=== PATIENT | male | born 1960 | race Caucasian/White ===

== ENCOUNTER 2025-02-10 22:05 | Emergency (ER) | payer OTHER, SELFPAY ==
[2025-02-10] VITALS (10 sets, daily range): BP systolic 106–141; BP diastolic 55–94; PULSE 66–86; RESP 12–20; TEMP 35.8–36.1; O2SAT 90–97; BMI 37.3; BMI 35.3
--- OUTSIDE RECORDS SUMMARY | 2025-02-10 22:07 | XMS_ITS | Clinical Summary ---
Author Organization [employer] [facility] & [facility] Address [address] [place] [address] Care Team Providers [employer] Name Role Phone Antonio Neri MD Primary Care Provider Allergies Active Allergy Reactions Criticality Noted Date Comments Venom-Honey Bee Anaphylaxis High 03/14/2017 Shellfish Containing Products Other - Describe In Comment Field 08/13/2019 Itchy face Sulfa (Sulfonamide Antibiotics) *Unknown - Pt Doesn't Remember Medications budesonide-formote roL (SYMBICORT) 160-4.5 mcg/actuation (160-4.5 mcg each actuation) inhalerIndications :Mild intermittent asthma with exacerbation (HC) Inhale 2 puffs twice daily and 1-2 puffs every 4 hours as needed for asthma exacerbations. Max 12 puffs per day. 1 Each 10/30/19 25 Active losartan-hydrochlo rothiazide, 50-12.5 mg, (HYZAAR) 50-12.5 mg tabletIndications: Benign essential HTN Take 1 Tablet by mouth once daily. 90 Tablet 3 10/30/19 25 Active EPINEPHrine (EPIPEN) 0.3 mg/0.3 mL auto-injectorIndic ations:Allergic to bees Inject 0.3 mg intramuscular each time if needed for Allergic Reaction. 4 Each 3 10/30/19 25 Active omeprazole 20 mg tabletIndications: Chronic GERD Take 1 Tablet (20 mg) by mouth once daily before a meal. 30 Tablet 1 02/05/20 25 Active aspirin chewable 81 mg chewable tabletIndications: Chest pain, unspecified type Chew 1 Tablet (81 mg) by mouth once daily with a meal. 02/05/20 25 Active metoprolol succinate (Toprol XL) 25 mg Sustained-Release tabletIndications: Chest pain, unspecified type Take 1 Tablet (25 mg) by mouth once daily. 30 Tablet 1 02/05/20 25 Active rosuvastatin 10 mg tabletIndications: Hyperlipidemia, unspecified hyperlipidemia type Take 1 Tablet (10 mg) by mouth at bedtime. 90 Tablet 3 02/05/20 25 Active nitroglycerin 0.4 mg sublingual tabletIndications: Chest pain, unspecified type Place 1 Tablet (0.4 mg) under the tongue every 5 minutes if needed for Chest Pain. Up to 3 tablets in 15 minutes. 25 Tablet 02/05/20 25 Active Hospital, Clinic, or Other Facility Administered Medication Ordered Dose Route Frequency Start Date End Date Status sodium chloride syringe 10 mL 10 mL IV ONE TIME 02/05/2025 02/05/2025 Ended sodium chloride syringe 10 mL 10 mL IV ONE TIME 02/05/2025 02/05/2025 Ended Active Problems Problem Noted Date Diagnosed Date Type 2 diabetes mellitus wit hout complication, without long-term current use of insulin 10/30/2024 Class 2 severe obesity with serious comorbidity and body mass index (BMI) of 35.0 to 35.9 in adult 10/30/2024 Overview (02/01/2025): BMI: 35.89 (10/30/24) Comorbidities: HTN, type 2 diabetes Benign essential HTN 10/28/2023 Hand arthritis 10/28/2023 Adenomatous colon polyp 08/05/2019 Overview (08/05/2019): Colonoscopy 07/2019 multiple polyps,long colon, cecum reached with patient prone. repeat in 3 years with longer colonoscope and anesthesia assistance at tertiary center Mild intermittent asthma without complication Bee sting 03/14/2017 Resolved Problems Problem Noted Date Diagnosed Date Resolved Date Prediabetes 10/28/2023 10/30/2024 Obesity, morbid 09/26/2023 10/28/2023 Elevated BP without diagnosis of hypertension 08/01/20 20 10/28/2023 Overweight 03/14/2017 10/28/2023 Encounters Date Type Department Care Team Description 02/08/2025 Telephone [facility] [address] [place] [address] Antonio Neri MD Follow Up 02/08/[address] [facility] [address] [place], [place] [id number] Bud Watt MD 02/05/2025 3:00 PM CDT Ancillary Procedure [facility] [address] [place] [address] 02/05/2025 Telephone [facility] [address] [place] [address] Antonio Neri MD Results 02/04/2025 4:35 PM CDT Office Visit [facility] [address] [place] [address] Antonio Neri MD Chest Pain (Across chest, started a couple months ago, when doing exertional activities, left arm gets numb ) 02/04/2025 Travel from Last 3 Months Immunizations Immunization Administration Dates Next Due Td (Age >=7 Years) 07/31/1996 Tdap 06/21/2015 Family History Medical History Relation Name Comments Heart attack Father Stroke Father Heart attack Paternal Grandfather fatal M I Anesthesia Problem No Family History Relation Name Status Comments Father Paternal Grandfather Social History Tobacco Use Types Packs/Day Years Used Date Smoking Tobacco: Former Smokeless Tobacco: Former Chew Quit: 10/31/2017 Tobacco Cessation:Counseling Given: No Alcohol Use Standard Drinks/Week Comments No 0 (1 standard drink = 0.6 oz pur e alcohol) PHQ-2 Answer Date Recorded PHQ-2 TOTAL SCORE 0 10/28/2023 Social Connections Answer Date Recorded Do you often feel lonely or isolated from those around you? 0 10/28/2023 Financial Resource Strain Answer Date R ecorded Difficulty of Paying Living Expenses 3 10/28/2023 Difficulty of Paying Living Expenses Not on file 10/28/2023 Food Insecurity Answer Date Recorded Do you worry your food will run out before you are able to buy more? 1 10/28/2023 Transportation Needs Answer Date Record ed Does lack of transportation keep you from medica l appointments? 1 10/28/2023 Does lack of transportation keep you from work, meetings or getting things that you need? 1 10/28/2023 Housing Stability Answer Date Recorded What is your housing situation today? 1 10/28/2023 Utilities Answer Date Recorded Do you have trouble paying f or utilities (for example, heat, electricity, water, phone)? 1 10/28/2023 Sex and Gender Information Value Date Recorded Sex Assigned at Not on file Legal Sex Male 7:07 AM [employer] [facility] Gender Identity Not on file Sexual Orientation Not on file Obstetrics History Last Filed Vital Signs Vital Sign Reading Time Taken Comments Blood Pressure 154/90 02/04/2025 4:28 PM CDT Pulse 90 02/04/2025 4:28 PM CDT Temperature 36.9 C (98.5 F) 08/26/2019 7:57 AM [facility] Respiratory Rate - - Oxygen Saturation 95% 02/04/2025 4:28 PM CDT Inhaled Oxygen Concentration - - Weight 110.2 kg (243 lb) 02/04/2025 4:28 PM CDT Height 172.5 cm (5' 7.91) 09/26/2023 8:30 AM CS T Body Mass Index 37.05 09/26/2023 8:30 AM [facility] Plan of Treatment Upcoming Encounters Date Type Department Care Team (Late st Contact Info) Description 02/12/2025 2:00 PM CDT Office Visit [facility] [address] [facility] [address] [place] [address] Nilay Fragoso MD [address] [facility] [address] [place] [address] 04/26/2025 8:00 AM CDT Orders Only [facility] [address] [place] [address] [place], [place] 04/26/2025 8:25 AM CDT Office Visit [facility] [address] [place] [address] Antonio Neri MD [address] [place] [address] Health Maintenance Due Date Last Done Comments Depression screening for age 12+ 1970 Pneumococcal series for age 50+ (1 of 2 - PCV) 1977 Zoster (shingles) series for age 50+ (1 of 2) 2008 RSV vaccine for adults or (1 - Risk 60-74 years 1-dose series) 2018 AAA screening age 65-74 2023 Medicare Wellness for age 65+ 2023 COVID-19 vaccine series ( - season) 2024 BMI (ht and wt on same day) for age 18+ 09/26/2024 09/26/2023, 08/07/2019, 03/14/2017 Influenza Vaccine (Season Ended) 2025 Tetanus booster 06/21/2025 06/21/2015, 07/31/1996 Colonoscopy through age 75 10/08/202610/08, 08/04/2019, 08/04/2019, Additional history exists Lipids for age 45-75 10/28/2029 10/28/2024, 09/26/20 23 Tdap Completed 06/21/2015 Hepatitis C screening for ag e 18-79 Completed 09/26/2023 Procedures Procedure Name Priority Date/Time Associated Diagnosis Comments ECHO TTE COMPLETE W CONTRAST DAJUAN 02/05/2025 3:46 PM CDT Chest pain, unspecified type Abnormal EKG PA READING EKG - NO CHARGE, COMP ONLY Routine 02/04/2025 4:53 PM CDT Chest pain, unspecified type EKG 12 LEAD Routine 02/04/2025 4:53 PM CDT Chest pain, unspecified type LIPID PANEL W REFLEX MEASURED LDL Routine 10/28/2024 7:02 AM [facility] Hyperlipidemia, unspecified hyperlipidemia type SCAN-COLONOSCOPY 10/08/2023 8:00 AM [facility] ANTI HCV Routine 09/26/2023 9:08 AM [facility] Need for hepatitis C screening test from Last 3 Months or Most Recently Relevant to Health Maintenance Results * ECHO TTE COMPLETE W CONTRAST (02/05/2025 3:46 PM CDT) AORTIC VALVE MEAN PG 6 mmHg EJECTION FRACTION 59 % LVEDD 4.6 cm EJECTION FRACTION 55 - 60% Anatomical Region Laterality Modality Ultrasound 02/05/2025 2:58 PM CDT Narrative 02/05/2025 4:56 PM CDT ECHOCARDIOGRAM IBETH MELLO : 1960 64 years Study Date: 02/05/2025 2:58:48 PM Gender: M BP: 154/90 mmHg Height: 170.18 cm BSA: 2.20 m Weight: 110.22 kg Tech: MSR Referring MD: ANTONIO NERI Site: [facility] Reading Location: [facility] Patient Location: Outpatient. Procedure: 2D w/ Contrast, Color Doppler and Spectral Doppler. Indication for study: Chest pain, unspecified type; Abnormal EKG Cardiac Rhythm: Unknown.Study quality: Fair. Final Impressions: 1. Normal LV size, normal wall thickness, normal global systolic function with an estimated EF of 55 - 60%. 2. Entire anterior septum and mid septum segment are abnormal. 3. Echo contrast was administered to enhance visualization of all left ventricular segments. 4. The sinus of Valsalva is normal for age/sex/bsa, diameter of 4.1 cm (upper limit of normal for age, sex, and BSA is 4.2 cm*), Height Index 2.41 cm/m. Chamber Sizes and Function Normal left ventricular size, normal wall thickness, normal global systolic function with an estimated EF of 55 - 60%. Left atrial size is normal. Left atrial pressure is normal. Right ventricular cavity size is normal, global systolic RV function is normal. The right atrium is normal. The pulmonary artery is of normal size and origin. The sinus of Valsalva is normal for age/sex/bsa. The ascending aorta is normal sized. The entire anterior septum and mid septum segment are hypokinetic. Valves, RV Pressures and Diastolic Function The aortic valve is normal in structure and trileaflet, no stenosis and no regurgitation. The mitral valve is sclerotic, no mitral regurgitation. Mitral annular calcification is present. Indeterminate pattern of LV diastolic filling. The tricuspid valve is normal in structure, regurgitation is not evident tricuspid regurgitation. The pulmonic valve is normal. No pulmonary regurgitation. Masses, Effusion, Shunts There is no pericardial effusion. The inferior vena cava is normal sized, respiratory size variation greater than 50%. Interatrial septum is not well visualized. MEASUREMENTS AND CALCULATIONS 2-D Measurements and LV Function: LVID (d) 4.6 cm LV FS% (2D) 39 % LVID (s) 2.8 cm LVOT diameter 2.2 cm IVS (d) 1.1 cm HR 59 bpm LVPW (d) 1.1 cm LA Vol index 30 ml/m2 Ao Sinus 4.1 cm RV Basal Diam 3.9 cm Ao Sinus ULN 4.2 cm * Asc Ao 3.6 cm Asc Ao ULN 4.2 cm * * Input BSA outside of range, reported values correspond to BSA = 2.1 Diastology: Mitral Tissue Doppler E Peak 0.9 m/s e', Septum 0.06 m/s A Peak 1.2 m/s e', Lateral 0.06 m/s E/A 0.7 E/e' Average 14.64 DT 170 msec Aortic Valve: Vmax 1.7 m/s EUGENIO (V) 2.53 cm VTI 0.34 m EUGENIO (I) 2.67 cm LVOT V max 1.1 m/s Max PG 12 mmHg LVOT VTI 0.24 m Mean PG 6 mmHg SV 89 ml Dim Index 0.70 SV index 41 ml/m CO 5.3 l/min CI 2.4 l/min/m Mitral Valve: MVA 4.5 cm MV P 1/2 49 msec Tricuspid Valve and estimated PA pressures: TAPSE 1.9 cm Contrast documentation: 2ml ml diluted Definity, lot #[id number], [facility]# [id number] was administered peripherally to enhance visualization of all left ventricular segments. . This study was interpreted by an [facility] accredited facility. Final Procedure Note Ghassan Serna MD - 02/05/2025 ECHOCARDIOGRAM IBETH MELLO : 1960 64 years Study Date: 02/05/2025 2:58:48 PM Gender: M BP: 154/90 mmHg Height: 170.18 cm BSA: 2.20 m Weight: 110.22 kg Tech: R Referring MD: ANTONIO NERI Site: [facility] Reading Location: [facility] Patient Location: Outpatient. Procedure: 2D w/ Contrast, Color Doppler and Spectral Doppler. Indication for study: Chest pain, unspecified type; Abnormal EKG Cardiac Rhythm: Unknown.Study quality: Fair. Final Impressions: 1. Normal LV size, normal wall thickness, normal global systolic functionwith an estimated EF of 55 - 60%. 2. Entire anterior septum and mid septum segment are abnormal. 3. Echo contrast was administered to enhance visualization of all leftventricular segments. 4. The sinus of Valsalva is normal for age/sex/bsa, diameter of 4.1 cm(upper limit of normal for age, sex, and BSA is 4.2 cm*), Height Index2.41 cm/m. Chamber Sizes and Function Normal left ventricular size, normal wall thickness, normal globalsystolic function with an estimated EF of 55 - 60%. Left atrial size isnormal. Left atrial pressure is normal. Right ventricular cavity size isnormal, global systolic RV function is normal. The right atrium is normal.The pulmonary artery is of normal size and origin. The sinus of Valsalvais normal for age/sex/bsa. The ascending aorta is normal sized. The entireanterior septum and mid septum segment are hypokinetic. Valves, RV Pressures and Diastolic Function The aortic valve is normal in structure and trileaflet, no stenosis and noregurgitation. The mitral valve is sclerotic, no mitral regurgitation.Mitral annular calcification is present. Indeterminate pattern of LVdiastolic filling. The tricuspid valve is normal in structure,regurgitation is not evident tricuspid regurgitation. The pulmonic valveis normal. No pulmonary regurgitation. Masses, Effusion, Shunts There is no pericardial effusion. The inferior vena cava is normal sized,respiratory size variation greater than 50%. Interatrial septum is notwell visualized. MEASUREMENTS AND CALCULATIONS 2-D Measurements and LV Function: LVID (d) 4.6 cm LV FS% (2D) 39% LVID (s) 2.8 cm LVOT diameter2.2 cm IVS (d) 1.1 cm HR 59bpm LVPW (d) 1.1 cm LA Vol index 30ml/m2 Ao Sinus 4.1 cm RV Basal Diam3.9 cm Ao Sinus ULN 4.2 cm * Asc Ao 3.6 cm Asc Ao ULN 4.2 cm * * Input BSA outside of range, reported values correspond to BSA = 2.1 Diastology: Mitral Tissue Doppler E Peak 0.9 m/s e', Septum 0.06 m/s A Peak 1.2 m/s e', Lateral 0.06 m/s E/A 0.7 E/e' Average 14.64 DT 170 msec Aortic Valve: Vmax 1.7 m/s EUGENIO (V) 2.53 cm VTI 0.34 m EUGENIO (I) 2.67 cm LVOT V max 1.1 m/s Max PG 12 mmHg LVOT VTI 0.24 m Mean PG 6 mmHg SV 89 ml Dim Index 0.70 SV index 41 ml/m CO 5.3 l/min CI 2.4 l/min/m Mitral Valve: MVA 4.5 cm MV P 1/2 49 msec Tricuspid Valve and estimated PA pressures: TAPSE 1.9 cm Contrast documentation: 2ml ml diluted Definity, lot #[id number], [facility]#[id number] was administered peripherally to enhance visualization of allleft ventricular segments. . This study was interpreted by an [facility] accredited facility. Final Antonio Neri MD ECHO ORD Final Result * EKG 12 LEAD (02/04/2025 4:53 PM CDT) Antonio Neri MD EKG ORD Final Result * PA READING EKG - NO CHARGE, COMP ONLY (02/04/2025 4:53 PM CDT) Antonio Neri MD PB - PROVIDER READINGS Final Result * (ABNORMAL) LIPID PANEL W REFLEX MEASURED LDL (10/28/2024 7:02 AM [facility]) CHOLESTEROL, TOTAL 181 <200 mg/dL [facility] HDL CHOLESTEROL 45 > OR = 40 mg/dL [facility] TRIGLYCERIDES 103 <150 mg/dL [facility] LDL-CHOLESTEROL 115(H) mg/dL (calc) [facility] Comment: Reference range: <100 Desirable range <100 mg/dL for primary prevention; <70 mg/dL for patients with CHD or diabetic patients with > or = 2 CHD risk factors. LDL-C is now calculated using the Levi calculation, which is a validated novel method providing better accuracy than the Friedewald equation in the estimation of LDL-C. Lele SS et al. AVINASH. 2013;310(19): 6481-0055 (http://education.[employer]/faq/OKU083) CHOL/HDLC RATIO 4.0 <5.0 (calc) [facility] NON HDL CHOLESTEROL 136(H) <130 mg/dL (calc) [facility] Comment: For patients with diabetes plus 1 major ASCVD risk factor, treating to a non-HDL-C goal of <100 mg/dL (LDL-C of <70 mg/dL) is considered a therapeutic option. Blood BLOOD SPECIMEN / Unknown 10/28/2024 7:02 AM [facility] 10/28/2024 7:02 AM [facility] us Antonio Neri MD CHEMISTRY Final Result [employer] [facility] [address] [place] [address], [employer] [address] * SCAN-COLONOSCOPY (10/08/2023 8:00 AM [facility]) Narrative Procedure Note Brett Reagan MD - 10/08/2023 7:15 AM CST [facility] [address], [address], [place] [address] Patient Name: Ibeth Mello Gender: Male Exam Date: 10/08/2023 Visit Number: [id number] Age: 63 Years Date of : 1960 Attending MD: Brett Reagan MD Medical Record#: [id number] Procedure: Colonoscopy Indications: Colorectal cancer screening Referring MD: Antonio Neri MD Primary MD: Antonio Neri MD Medications: Admitting Medications: 0.9% Normal Saline at TK Intra Procedure Medications: Patient received monitored anesthesia care. Complications: No immediate complications Procedure: An examination of the heart and lungs was performed and found to be withinacceptable limits. . The patient was therefore deemed a reasonablecandidate for endoscopy and sedation. The risks and benefits of the procedure were explained to the patient.After obtaining informed consent, the patient received monitoredanesthesia care and I passed the scope without difficulty via the rectum to the cecum. The appendiceal orificeand ic valve were identified. The scope was retroflexed during theexamination The quality of the prep was good (Miralax/Gatorade/2 tabletsBisacodyl/Magnesium Citrate). This was a complete examination throughout the entire colon. Findings: Polyp location: transverse colon. Quantity: 2. Size: 3-5 mm. Polypshape: sessile. Maneuver: polypectomy was performed with a cold snare. Removal: complete. Retrieval: complete. Bleeding: none. Diverticulosis. Location: - sigmoid. Size: medium. Quantity:several. Anal canal: internal hemorrhoid(s) Remainder of the exam is normal. Impression: Colorectal polyps Diverticulosis of colon Internal hemorrhoids Preliminary Plan: The patient and their physician will receive a copy of the pathologyreport as well as pathology-based recommendations for future screening orsurveillance. Recommendation Comments: -Repeat colonoscopy in 5-10 years depending on pathology results. Pathology Results: A: COLON, TRANSVERSE, POLYPS: 1. Tubular adenomas (2) 2. Negative for high grade dysplasia 3. Per the colonoscopy report: a. Polyp sizes: 3 mm - 5 mm b. Resection: Complete c. Retrieval: Complete MICROSCOPIC A: Performed Electronically signed by: Stef Boss MD Interpreted at [facility], [address] [place] [address] Orders Instruction(s)/Education: Instruction/Education Timeframe Assessment Colon Cancer Prevention K63.5 Colon Polyps K63.5 Diverticulosis/Diverticulitis K63.5 Hemorrhoids K63.5 High Fiber Diet K63.5 Final Plan: Repeat colonoscopy in 7 years for Polyp surveillance. We will attempt to contact you at appropriate intervals via U.S. mail. Wemay not be able to find you or contact you at that time, therefore youshould know that the responsibility for following our recommendation restswith you. If you don't hear from us at the time your procedure is due,please contact our office to schedule an appointment. If your contactinformation should change, please contact our office so that we can updateyour record. _Electronically signed by: Brett Reagan MD 10/08/2023 cc: Antonio Neri MD cc: Antonio Neri MD us Brett Reagan MD OTHER Final R esult * ANTI HCV (09/26/2023 9:08 AM [facility]) HEPATITIS C ANTIBODY Non-Reacti ve Non-React noemi 09/26/2023 4:12 PM [facility] Comment:Please note, per www .CDC.gov: If a patient is known to be at high risk of HCV infection, or is symptomatic, and the physician's suspicion of HCV infection is high, HCV RNA testing is often employed and is of diagnostic value, even after an initial negative anti-HCV test result. Blood BLOOD SPECIMEN / Unknown Venipuncture / Unknown 09/26/2023 9:08 AM [facility] 09/26/2023 9:09 AM [facility] us Antonio Neri MD SEND OUTS Final Result [facility] [address] [place] [address], [place] from Last 3 Months or Most Recently Relevant to Health Maintenance Insurance [facility] MEDICARE ADVANTAGE [place] [id number] * Guarantor: [employer] Account Type Relation to Patient Date of Phone Billing Address [facility] Remote Assistant [address] [place] [address] Care Teams [employer] Relationship Specialty Start Date End Date Antonio Neri MD [address] [place] [address] PCP - General Family Practice 10/18/17
--- NOTE | 2025-02-10 22:15 | ED_ITS ---
HPI - General Adult General Date Seen: 02/10/25 Chief complaint: Chest Pain Stated complaint: severe chest pain Time Seen by Provider: 02/10/25 22:15 History of Present Illness HPI narrative: 64-year-old male with history of hypertension, type 2 diabetes, asthma , hyperlipidemia, (on metoprolol, losartan, hydrochlorothiazide, budesonide/formoterol, baby aspirin). He presents to the ER tonight with his for chest pain is. It is located in the central and left part of his chest. It began about 20 minutes prior to arrival body was watching TV. No strenuous activity or other provoking factors. It is not associated with other symptoms such as dizziness, sweatiness, jaw pain, back pain, arm pain, nausea. No presyncope. He had 1 other episode of chest pain about 3 weeks ago. He had follow-up with his primary care provider at the [facility], Dr. Charlton when. After that chest pain he has been getting some cardiac workup. He describes having an echocardiogram and some other test on his heart last week. He is having a consultation upcoming with Cardiology to consider an angiogram. He does not know what tests he had or what the results were. He has not had any chest pain for the past 3 weeks. Tonight at 10 he started having some substernal left-sided chest pain. No other symptoms. It was rated 7/10 and got a little bit better with sublingual nitro but now came back again. No palpitations. No syncope. No back pain. No shortness of breath. No abdominal pain. No nausea. No sweatiness. No pain radiating down his left arm or up to his jaw. ECHOCARDIOGRAM 02/05/25 Final Impressions: 1. Normal LV size, normal wall thickness, normal global systolic function with an estimated EF of 55 - 60%. 2. Entire anterior septum and mid septum segment are abnormal. 3. Echo contrast was administered to enhance visualization of all left ventricular segments. 4. The sinus of Valsalva is normal for age/sex/bsa, diameter of 4.1 cm (upper limit of normal for age, sex, and BSA is 4.2 cm*), Height Index 2.41 cm/m... The entire anterior septum and mid septum segment are hypokinetic. Related Data Home Medications ?Medication ?Instructions ?Recorded ?Confirmed losartan 50 mg-hydrochlorothiazide 1 tab PO DAILY 02/10/25 02/10/25 12.5 mg tablet metoprolol succinate 25 mg 25 mg PO DAILY 02/10/25 02/10/25 tablet,extended release 24 hr nitroglycerin 0.4 mg sublingual mg sublingual 02/10/25 tablet omeprazole 20 mg tablet,delayed 20 mg PO DAILY 02/10/25 02/10/25 release rosuvastatin 10 mg tablet 10 mg PO QPM 02/10/25 02/10/25 Allergies Allergy/AdvReac Type Severity Reaction Status Date / Time bee pollen Allergy Unknown Verified 02/10/25 22:08 Sulfa (Sulfonamide Allergy Unknown Verified 02/10/25 22:08 Antibiotics) [facility] Social History Smoking Status: Former smoker Do you use any of these nicotine containing products: None Second hand tobacco smoke exposure: No How often do you have a drink containing alcohol: never AUDIT-C Alcohol total score: 0 Non-prescribed substance use: denies use service: No Exam Narrative: Exam Narrative: A- patent B- Breathing easily. Lungs clear C- BP normal/ slightly hypertensive. Normal pulses. normal perfusion. no signs of shock D- AOx3 GCS 15. no focal deficits GEN: robust. normal nutrition. no distress but looks subtly aquino. however, not mottled or cyanotic, diaphoretic HENT: atraumatic. pharynx normal. tonsils normal. Mallampati 3. Eyes: wearing glasses. gaze conjugate. EOMI. sclera normal Neck: normal ROM. trachea midline. no stridor. no mass. No JVD CV: RRR. No MRG. Symmetric radial and DP pulses. Normal cap refill PULM: lungs clear. RR normal. no rales. no retractions. No respiratory distress ABD: nontender. MSK: no edema. no tenderness. Normal ROM. no deformity Neuro: AO x3. CN II-VII intact. strength and sensory normal x 4 extremities. No focal deficits Psych: calm. normal affect. polite. Const: Vital Signs, click to edit/add: Vital Signs - 24 hr 02/10/25 22:06 02/10/25 22:17 02/10/25 22:21 Temperature 96.4 F L 97.0 F L Pulse Rate 81 Pulse Rate [Pulse Oximeter] 86 82 Respiratory Rate 20 18 12 Blood Pressure 138/94 H Blood Pressure [Ri ght Upper Arm] 136/88 141/93 H Pulse Oximetry 94 95 94 Oxygen Delivery Me thod Room Air Room Air Oxygen Flow Rate 02/10/25 22:31 02/10/25 22:32 02/10/25 22:37 Temperature Pulse Rate 81 74 Pulse Rate [Pulse Oximeter] 82 Respiratory Rate 16 13 12 Blood Pressure 106/78 112/75 Blood Pressure [Ri ght Upper Arm] 138/94 H Pulse Oximetry 95 92 93 Oxygen Delivery Me thod Room Air Oxygen Flow Rate 02/10/25 22:41 02/10/25 22:41 02/10/25 22:42 Temperature Pulse Rate 66 Pulse Rate [Pulse Oximeter] 69 Respiratory Rate 16 13 16 Blood Pressure 107/72 Blood Pressure [Ri ght Upper Arm] 107/72 Pulse Oximetry 97 95 90 Oxygen Delivery Me thod Nasal Cannula Room Air Oxygen Flow Rate 2 02/10/25 22:46 02/10/25 22:51 Temperature Pulse Rate 76 74 Pulse Rate [Pulse Oximeter] Respiratory Rate 17 17 Blood Pressure 110/65 117/55 L Blood Pressure [Ri ght Upper Arm] Pulse Oximetry 97 95 Oxygen Delivery Me thod Oxygen Flow Rate Course Vital Signs Vital signs: Initial Vital Signs Temperature 96.4 F L 02/10/25 22:06 Temperature Source Temporal Artery Scan 02/10/25 22:06 Pulse Rate 86 02/10/25 22:06 Respiratory Rate 02/10/25 22:06 Blood Pressure 136/88 02/10/25 22:06 Blood Pressure Mean 104 02/10/25 22:06 Blood Pressure Position Supine 02/10/25 22:06 Pulse Oximetry 94 02/10/25 22:06 Oxygen Delivery Method Room Air 02/10/25 22:06 Vital Signs Temperature 96.4 F L 02/10/25 22:06 Pulse Rate 86 02/10/25 22:06 Respiratory Rate 20 02/10/25 22:06 Blood Pressure 136/88 02/10/25 22:06 Pulse Oximetry 94 02/10/25 22:06 Oxygen Delivery Method Room Air 02/10/25 22:06 Temperature 97.0 F L 02/10/25 22:17 Pulse Rate 74 02/10/25 22:51 Respiratory Rate 17 02/10/25 22:51 Blood Pressure 117/55 L 02/10/25 22:51 Pulse Oximetry 95 02/10/25 22:51 Oxygen Delivery Method Room Air 02/10/25 22:42 Oxygen Flow Rate 2 02/10/25 22:42 Medications Administered Medications: Discontinued Medications Generic Name Dose Route Start Last Admin Trade Name Bria PRN Reason Stop Dose Admin Heparin Sodium (Porcine) 4,000 unit 02/10/25 22:54 02/10/25 23:01 Heparin 5,000 Unit/0.5 Ml Inj IVP 02/10/25 22:55 4,000 unit ONCE ONE Administration Nitroglycerin/Dextrose 25,000 mcg in 250 mls @ 3 mls/hr 02/10/25 22:52 02/10/25 23:20 Nitroglycerin/Dextrose IVPB 5 mcg/min .TITRATE PRN 3 mls/hr Administration Protocol 5 MCG/MIN Heparin Sodium/Dextrose 25,000 unit in 500 mls @ 0 mls/hr 02/10/25 23:00 02/10/25 23:04 Heparin IV 1,000 unit/hr .Q0M BRAVO 20 mls/hr Administration Protocol Per Protocol Medical Decision Making MDM Narrative Medical decision making narrative: viola 64 yo M presents with his from home for evaluation of Chest pain that 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 Has no h/o CAD or other cardiac problems. Multiple RFs including age, gender, HTN, dyslipidemia, DM2. Had recent episode of non-exertional CP that happened about 3 weeks ago. Has had part of a cardiac workup initiated through his PCP. Had a resting echo on 02/05 that showed septal hypokinesis, but normal EF. Has been referred to cardiology and has an appointment later this week and apparently may be getting set up for outpaitnet cath. Given RX for prn SL nitro. No chest pains or symptoms for the past 3 weeks until tonight. Primary concern is for possible ACS. Already took ASA 325 mg at home. and took one SL with transient improvement (but not resolution) of CP. Initial EKG shows subtle signs of anterior ischemia. <1box SHUKRI in V1 and about 1 box of Jpoint elevation in V2 with an upsloping ST segment. No reciprocal changes. Since this correlates with hsi recent echo abnormalities, is concerning. Not enough to activate chemical laboratory assistant. I placed call for phone consult with [facility] from [facility] and requested IV, monitor and repeat EKG in 5 minutes. 5 minute repeat EKG unchanged. Pt received 3 doses of SL nitro with improvement of CP from 7/10 down to 3/10. BP to normal levels. As this was happening, cardiology, Dr. Young, called back. I was able to send him pictures of the EKGs by text. He reviewed and shares my concern. 3rd EKG was obtained after pain improved and shows resolution of the SHUKRI in V1 and V2. With this dynamic change, current presentation suggestive for ACS, but not currently STEMI. ISTAT trop is normal, but pain only began [address] Young and I agree that urgent cath is indicated. Dr. Young requests a Level II chemical laboratory assistant activation. Pt will be started on heparin drip. Nitro drip with a goal of Chest pain resolution. Will be transferred by ground EMS (not helicopter) direct to [facility] chemical laboratory assistant tonight. CXR shiws nomal mediastinum. No aortic abnormality. No pulmonary edema, pneumonia, pneumothorax. Lungs clear. No wheezing , astham COPD. No recent travel, leg swelling or other signs of PE/DVT. Lab Data Labs: Lab Results 02/10/25 02/10/25 02/10/25 Range/Units 22:31 22:50 22:52 WBC 17.80 H (4.50-11.00) K/uL RBC 4.72 (4.30-5.90) m/uL Hgb 14.7 (13.5-17.5) gm/dL Hct 42.8 (37.0-53.0) % MCV 91 (80-100) fL MCH 31 (26-34) pg MCHC 34 (32-36) gm/dL RDW Coeff of Adelina 12.5 (11.5-15.5) % Plt Count 268 (140-440) K/uL Neut % (Auto) 33.3 L (42.0-72.0) % Lymph % (Auto) 56.3 H (20-44) % [place] % (Auto) 6.2 (0.0-11.0) % Eos % (Auto) 3.4 (0.0-7.0) % Baso % (Auto) 0.3 (0.0-3.0) % Neut # (Auto) 5.90 (1.7-7.0) K/uL Lymph # (Auto) 10.00 H (0.90-2.90) K/uL [place] # (Auto) 1.10 H (0.00-0.90) K/UL Eos # (Auto) 0.60 H (0.00-0.50) K/uL Baso # (Auto) 0.10 (0.00-0.30) K/uL Abs Immat Gran (auto) 0.10 (0.00-0.30) K/uL Imm/Tot Granulo (auto) 0.5 % INR (0.91-1.10) APTT (23-33) Seconds Sodium 141 (135-149) mmol/L Potassium 3.5 L (3.6-5.1) mmol/L Chloride 103 (96-114) mmol/L Carbon Dioxide 27 (20-32) mmol/L Anion Gap 11 (7-15) mEq/L BUN 19 (7-30) mg/dL Creatinine 1.0 (0.5-1.5) mg/dL Estimated Creat Clear 70.30 Estimated GFR 83 ml/min Glucose 112 (60-115) mg/dL Calcium 9.5 (8.4-10.6) mg/dL Total Bilirubin 0.7 (0.1-1.5) mg/dL AST 27 (12-35) U/L ALT 29 (4-50) U/L Alkaline Phosphatase 60 (40-150) U/L Troponin I 0.01 (0.01-0.04) ng/mL Total Protein 7.6 (6.0-8.3) g/dL Albumin 4.8 (3.3-5.0) g/dL POC Troponin I 0.01 (0.01-0.04) ng/ml 02/10/25 Range/Units 23:11 WBC (4.50-11.00) K/uL RBC (4.30-5.90) m/uL Hgb (13.5-17.5) gm/dL Hct (37.0-53.0) % MCV (80-100) fL MCH (26-34) pg MCHC (32-36) gm/dL RDW Coeff of Adelina (11.5-15.5) % Plt Count (140-440) K/uL Neut % (Auto) (42.0-72.0) % Lymph % (Auto) (20-44) % [place] % (Auto) (0.0-11.0) % Eos % (Auto) (0.0-7.0) % Baso % (Auto) (0.0-3.0) % Neut # (Auto) (1.7-7.0) K/uL Lymph # (Auto) (0.90-2.90) K/uL [place] # (Auto) (0.00-0.90) K/UL Eos # (Auto) (0.00-0.50) K/uL Baso # (Auto) (0.00-0.30) K/uL Abs Immat Gran (auto) (0.00-0.30) K/uL Imm/Tot Granulo (auto) % INR 0.96 (0.91-1.10) APTT 26 (23-33) Seconds Sodium (135-149) mmol/L Potassium (3.6-5.1) mmol/L Chloride (96-114) mmol/L Carbon Dioxide (20-32) mmol/L Anion Gap (7-15) mEq/L BUN (7-30) mg/dL Creatinine (0.5-1.5) mg/dL Estimated Creat Clear Estimated GFR ml/min Glucose (60-115) mg/dL Calcium (8.4-10.6) mg/dL Total Bilirubin (0.1-1.5) mg/dL AST (12-35) U/L ALT (4-50) U/L Alkaline Phosphatase (40-150) U/L Troponin I (0.01-0.04) ng/mL Total Protein (6.0-8.3) g/dL Albumin (3.3-5.0) g/dL POC Troponin I (0.01-0.04) ng/ml Imaging Data Chest x-ray: Attestation: I have reviewed the pertinent imaging results. Radiologist's impression: IMPRESSION: 1. No acute cardiopulmonary disease is seen. ECG Data Attestation: I personally reviewed and interpreted this ECG as follows: Interpretation: 2215 Normal sinus rhythm Rate: 76 OK: 204 QRS axis: Left axis deviation. Minimal voltage criteria for LVH ST segment/T wave: ST segment elevation in leads V1 and V2. Unclear if this is due to LVH with strain or possible STEMI. There is no reciprocal change in the other leads. QTc: 416 22:27 Normal sinus rhythm with fusion complexes Rate: 76 OK: 206 QRS axis: Left axis deviation. Bulge heard criteria for LVH. ST segment/T wave: ST segment elevation less than 1 box in V1, upsloping ST elevation in lead V2 about 1 box at the J-point. No ST elevation in lead V3-V6. No reciprocal change. No change compared to 1st EKG QTc: 416 2249 Normal sinus rhythm Rate: 75 OK: To 0 4 QRS axis: Left axis deviation. Q-waves in lead V1 was present on previous EKGs. ST segment/T wave: Previous ST elevation in leads V1 V2 is now improved. Previously there was about less than [address] elevation in V1 and less than [address] elevation in V2. Those are now normal and ST segments are now at baseline. No evolving reciprocal changes. QTc: 410 Patient notes that his chest pain is down to 3/10 after 3 sublingual nitro. Critical Care Time Critical Care Time Critical Care Time: Yes Attestation: The patient required my highest level preparedness to intervene emergently and I personally spent this critical care time directly and personally managing the patient. This critical care time included: Obtaining a history; Examining the patient; Pulse oximetry; Ordering and reviewing of studies; Arranging urgent treatment with development of a management plan; Evaluation of patients res ponse to treatment; Frequent reassessment discussions with other providers. This critical care time was performed to assess and manage the high probability of imminent life-threatening deterioration that could result in multiorgan failure. It was exclusive of separate billable procedures and treating other patients and teaching time. Total Critical Care Time in Minutes: 30 Discharge Plan Discharge Clinical Impression: ACS (acute coronary syndrome), Chest pain Patient Disposition: Casper Benítez Prescriptions: No Action nitroglycerin 0.4 mg tablet, sublingual sublingual metoprolol succinate 25 mg tablet extended release 24 hr 25 mg PO DAILY losartan-hydrochlorothiazide 50-12.5 mg tablet 1 tab PO DAILY rosuvastatin 10 mg tablet 10 mg PO QPM omeprazole 20 mg tablet,delayed release (DR/EC) 20 mg PO DAILY Stand Alone Forms: [employer] Info Instructions
[2025-02-10 22:34] LABS: Troponin, Point-of-Care* 0.01 ng/ml (0.01-0.04)
--- NOTE | 2025-02-10 22:39 | CRLHL7_ITS ---
For Patients: As a result of the Century Cures Act, medical imaging exams and procedure reports are released immediately into your electronic medical record. You may view this report before your referring provider. If you have questions, please contact your health care provider. INDICATION: Chest pain TECHNIQUE: Chest radiograph 1 view COMPARISON: 07/06/2021 FINDINGS: The sensitivity and specificity of the exam are moderately limited by the patient`s body habitus. Mediastinum: The mediastinum is normal in appearance. The heart silhouette is normal in size and morphology. Lung: Both lungs are unremarkable in appearance with small lung volumes. No sign of pleural effusion seen. No pneumothorax is identified. Bone and Soft tissue: Unremarkable for age. IMPRESSION: 1. No acute cardiopulmonary disease is seen. Dictated by: Rosas Fonseca MD @ 02/10/2025 23:23:51 (Electronically Signed)
[2025-02-10 22:58] LABS: Basophils Percent Auto 0.3 % (0.0-3.0); Eosinophils Percent Auto 3.4 % (0.0-7.0); Hematocrit 42.8 % (37.0-53.0); Hemoglobin* 14.7 gm/dL (13.5-17.5); Immature Granulocytes Pct Auto 0.5 %; Lymphocytes Percent Auto 56.3 % (20-44); Mean Corpuscular HGB Conc 34 gm/dL (32-36); Mean Corpuscular Hemoglobin 31 pg (26-34); Mean Corpuscular Volume 91 fL (80-100); Monocytes Percent Auto 6.2 % (0.0-11.0); Neutrophils Percent Auto 33.3 % (42.0-72.0); Platelet Count* 268 K/uL (140-440); RDW Coefficient of Variation % 12.5 % (11.5-15.5); Red Blood Count 4.72 m/uL (4.30-5.90)
[2025-02-10 23:00] LABS: Slide Review Reflex No
[2025-02-10] MEDS: HEPARIN 5,000 UNIT/0.5 ML INJ 4000 UNIT IVP (23:01)
[2025-02-10] MEDS: HEPARIN 25,000 UNIT/500 ML BAG 20 UNIT IV (23:04)
--- OUTSIDE RECORDS SUMMARY | 2025-02-10 23:07 | XMS_ITS | Clinical Summary ---
Author Organization [employer] [facility] & [facility] Address [address] [place] [address] Care Team Providers Care Social Worker Assistant Name Role Phone Antonio Neri MD Primary [...] Type Department Care Team Description 02/08/2025 Telephone [facility] [address] [place] [address] Antonio Neri MD Follow Up 02/08/2025 Telephone [facility] [address] [place], [place] [id number] Bud Watt MD 02/05/2025 3:00 PM CDT Ancillary Procedure [facility] [address] [place] [address] 02/05/2025 Telephone [facility] [address] [place] [address] Antonio Neri MD Results 02/04/2025 4:35 PM CDT Office Visit [facility] [address] [place] [address] Antonio Neri MD Chest Pain (Across chest, [...] on file Legal Sex Male 7:07 AM JAVA ANALYST Gender Identity Not on file Sexual Orientation Not on file Obstetrics History Last Filed Vital Signs Vital Sign Reading Time Taken Comments Blood Pressure 154/90 02/04/2025 4:28 PM CDT Pulse 90 02/04/2025 4:28 PM CDT Temperature 36.9 C (98.5 F) 08/26/2019 7:57 AM JAVA ANALYST Respiratory Rate - - Oxygen Saturation 95% 02/04/2025 4:28 PM CDT Inhaled Oxygen Concentration - - Weight 110.2 kg (243 lb) 02/04/2025 4:28 PM CDT Height 172.5 cm (5' 7.91) 09/26/2023 8:30 AM CS T Body Mass Index 37.05 09/26/2023 8:30 AM JAVA ANALYST Plan of Treatment Upcoming Encounters Date Type Department Care Team (Late st Contact Info) Description 02/12/2025 2:00 PM CDT Office Visit [facility] [address] [facility] [address] [place] [address] Nilay Fragoso MD [address] [facility] [address] [place] [address] 04/26/2025 8:00 AM CDT Orders Only [facility] [address] [place] [address] Lab, [place] 04/26/2025 8:25 AM CDT Office Visit [facility] [address] [place] [address] Antonio Neri MD [address] [place] [address] Health Maintenance Due Date Last Done Comments [...] CDT Chest pain, unspecified type Abnormal EKG ID READING EKG - NO CHARGE, COMP ONLY Routine 02/04/2025 4:53 PM CDT Chest pain, unspecified type EKG 12 LEAD Routine 02/04/2025 4:53 PM CDT Chest pain, unspecified type LIPID PANEL W REFLEX MEASURED LDL Routine 10/28/2024 7:02 AM JAVA ANALYST Hyperlipidemia, unspecified hyperlipidemia type SCAN-COLONOSCOPY 10/08/2023 8:00 AM JAVA ANALYST ANTI HCV Routine 09/26/2023 9:08 AM JAVA ANALYST Need for hepatitis C screening test from [...] Tech: MSR Referring MD: ANTONIO NERI Site: [facility] Reading Location: [facility] Patient Location: Outpatient. Procedure: 2D w/ Contrast, [...] documentation: 2ml ml diluted Definity, lot #[id number], [facility] [place] [id number] was administered peripherally to enhance visualization of all left ventricular segments. . This study was interpreted by an [facility] accredited facility. Final Procedure Note Ghassan Serna MD - 02/05/2025 ECHOCARDIOGRAM IBETH MELLO : 1960 64 years Study Date: 02/05/2025 2:58:48 PM Gender: M BP: 154/90 mmHg Height: 170.18 cm BSA: 2.20 m Weight: 110.22 kg Tech: R Referring MD: ANTONIO NERI Site: [facility] Reading Location: [facility] Patient Location: Outpatient. Procedure: 2D w/ Contrast, [...] documentation: 2ml ml diluted Definity, lot #[id number], [facility] [place][id number] was administered peripherally to enhance visualization of allleft ventricular segments. . This study was interpreted by an [facility] accredited facility. Final Antonio Neri MD ECHO ORD Final Result * EKG 12 LEAD (02/04/2025 4:53 PM CDT) Antonio Neri MD EKG ORD Final Result * ID READING EKG - NO CHARGE, COMP ONLY (02/04/2025 4:53 PM CDT) Antonio Neri MD PB - PROVIDER READINGS Final Result * (ABNORMAL) LIPID PANEL W REFLEX MEASURED LDL (10/28/2024 7:02 AM JAVA ANALYST) CHOLESTEROL, TOTAL 181 <200 mg/dL [facility] [...] LDL-C. Lele SS et al. AVINASH. 2013;310(19): 4550-4462 (http://education.Rifiniti/faq/GKZ838) CHOL/HDLC RATIO 4.0 <5.0 (calc) [facility] NON HDL CHOLESTEROL 136(H) <130 mg/dL (calc) [facility] Comment: For patients with diabetes plus 1 major ASCVD risk factor, treating to a non-HDL-C goal of <100 mg/dL (LDL-C of <70 mg/dL) is considered a therapeutic option. Blood BLOOD SPECIMEN / Unknown 10/28/2024 7:02 AM JAVA ANALYST 10/28/2024 7:02 AM JAVA ANALYST us Antonio Neri MD CHEMISTRY Final Result [facility] [address] [place] [address], [employer] [id number] * SCAN-COLONOSCOPY (10/08/2023 8:00 AM JAVA ANALYST) Narrative Procedure Note Brett Reagan MD - 10/08/2023 7:15 AM CST [facility] [address] [facility], [address], [place] [address] Patient Name: Ibeth Mello Gender: Male Exam Date: 10/08/2023 Visit Number: [id number] Age: 63 Years Date of : 1960 Attending MD: Brett Reagan MD Medical Record#: [id number] Procedure: Colonoscopy Indications: Colorectal cancer screening Referring [...] signed by: Stef Boss MD Interpreted at [facility], [address] [place] [address] Orders Instruction(s)/Education: Instruction/Education Timeframe Assessment Colon Cancer [...] esult * ANTI HCV (09/26/2023 9:08 AM JAVA ANALYST) HEPATITIS C ANTIBODY Non-Reacti ve Non-React noemi 09/26/2023 4:12 PM JAVA ANALYST [facility] Comment:Please note, per www .CDC.gov: If a patient is known to be at high risk of HCV infection, or is symptomatic, and the physician's suspicion of HCV infection is high, HCV RNA testing is often employed and is of diagnostic value, even after an initial negative anti-HCV test result. Blood BLOOD SPECIMEN / Unknown Venipuncture / Unknown 09/26/2023 9:08 AM JAVA ANALYST 09/26/2023 9:09 AM JAVA ANALYST us Antonio Neri MD SEND OUTS Final Result [facility] [address] [place] [address], [place] from Last 3 Months or Most Recently Relevant to Health Maintenance Insurance [facility] MEDICARE ADVANTAGE [place] [id number] * Guarantor: [employer] Account Type Relation to Patient Date of Phone Billing Address [facility] [employer] [address] [place] [address] Care Teams Social Worker Assistant Relationship Specialty Start Date End Date Antonio Neri MD [address] [place] [address] PCP - General Family Practice 10/18/17
[2025-02-10 23:11] LABS: Albumin* 4.8 g/dL (3.3-5.0); Chloride* 103 mmol/L (96-114); Potassium* 3.5 mmol/L (3.6-5.1); Sodium* 141 mmol/L (135-149)
[2025-02-10 23:14] LABS: Alanine Aminotransferase* 29 U/L (4-50); Alkaline Phosphatase* 60 U/L (40-150); Anion Gap 11 mEq/L (7-15); Aspartate Amino Transferase* 27 U/L (12-35); Bilirubin Total* 0.7 mg/dL (0.1-1.5); Blood Urea Nitrogen* 19 mg/dL (7-30); Calcium* 9.5 mg/dL (8.4-10.6); Carbon Dioxide* 27 mmol/L (20-32); Estimated Glomerular Filt Rate 83 ml/min; Glucose* 112 mg/dL (60-115); Total Protein* 7.6 g/dL (6.0-8.3)
[2025-02-10] MEDS: NITROGLYCERIN/DEXTROSE 25,000 MCG/250 ML BOTTLE 3 MCG IVPB (23:20)
[2025-02-10 23:21] LABS: INR 0.96 (0.91-1.10); Prothrombin Time 13.5 Seconds
[2025-02-10 23:22] LABS: Partial Thromboplastin Time* 26 Seconds (23-33)
[2025-02-10 23:26] LABS: Troponin I* 0.01 ng/mL (0.01-0.04)
== END 2025-02-10 23:32 | disposition short-term general hospital (02) ==
LOC: ED 23:05
PROVIDERS: Emergency Provider Emergency Medicine; PCP Family Medicine
DX: I24.9 Acute ischemic heart disease, unspecified (principal); R07.9 Chest pain, unspecified
CPT/HCPCS: 36415; 71045; 80053; 84484; 85025; 85027; 85610; 85730; 93005; 99285; 99291; J1644

== ENCOUNTER 2025-02-10 23:19 | Outpatient (CLI) | payer OTHER, SELFPAY | END 2025-02-10 23:20 | disposition home or self-care (01) | LOC: AMB 02-11 10:28 | PROVIDERS: PCP Family Medicine; Visit Provider Emergency Medicine | DX: I24.9 Acute ischemic heart disease, unspecified (principal); R07.9 Chest pain, unspecified | CPT/HCPCS: A0425; A0427 ==